=== PATIENT | male | born 1970 | race Caucasian/White ===

== ENCOUNTER 2018-10-06 14:11 | Emergency (ER) | payer SELFPAY ==
[2018-10-06 14:14] VITALS: BP 136/73; PULSE 79; RESP 16; TEMP 36.8; O2SAT 97
--- NOTE | 2018-10-06 14:35 | W.ED.GENAD ---
Discharge Plan Disposition Patient Disposition: HOME Condition: Improving Discharge Details Chief Complaint: Orthopedic Clinical Impression: Closed fracture of distal end of right tibia Primary Care Provider: None,None ED Provider: Anthony England Home Meds and New Rx's Prescriptions: No Action No Known Home Meds RF: 0 Discharge Instructions Instructions: Ankle Fracture (ED) Additional Instructions: Nonweightbearing with use of crutches until seen by Dr. Bacon in orthopedic clinic. Please call the clinic on Monday morning at [phone] for an appointment time. Elevate above the level of heart to reduce pain and swelling. Leave splint in place. May use Tylenol and/or ibuprofen as needed for pain. Return if developed cold, blue, tingling of the toes or any other acute concerns Medical Decision Making 48-year-old male with slip and fall down a small number of stairs at home, twisting his right ankle without other injury. He has normal vital signs, no neurovascular compromise. Given ice topically & referred for x-ray to rule out underlying fracture. X-ray reveals a minimally displaced vertical fracture through the distal tibia into the mortise on the lateral aspect. Screening knee x-ray obtained to rule out Maisonneuve fracture (negative). Patient placed in posterior splint with stirrup and made nonweightbearing with crutches. He will follow-up with Dr. Bacon in clinic with whom the case was discussed and x-ray reviewed. Patient improved and appropriate for discharge to home. He understands follow-up and return precautions. HPI General Mode of arrival: wheelchair. Date/Time Provider Initiated Documentation: 10/06/18 14:24. Limitations to Documentation: no limitations. Information obtained by: patient and family. History of Present Illness 48 year old M presents to the emergency department with the chief complaint of Patient slipped down stairs at home with twisting his right ankle. , described as moderate, Quality is described as aching and dull, and is localized to the right and lower extremity. Patient reports no radiation. Patient started experiencing this minute(s) and it has been constant. No relieving factors improve symptom(s), Movement worsens symptoms . Patient notes no other symptoms.; denies chest pain, headaches, syncope and weakness. Patient did receive the following treatments prior to arrival, other (ice) Related Data Home Medications Medication Instructions Recorded Confirmed Unknown [No Known Home Meds] 10/06/18 10/06/18 Allergies Allergy/AdvReac Type Severity Reaction Status Date / Time No Known Allergies Allergy Unverified 10/06/18 14:14 General Stated Complaint: Orthopedic EUNICE: 4 Review of Systems Review of Systems No numbness or tingling. No head/neck/chest/belly discomfort. 8 systems reviewed and otherwise neg PFSH Social History Smoking/Tobacco Use Status: Never Alcohol Intake: current Alcohol Intake frequency: a few times a month Do you feel safe at home: Yes Do you feel safe in your relationship?: Yes Exam Narrative Exam Narrative: GEN: awake, alert, oriented 3. Pleasant, well groomed, interactive. HEAD: Normocephalic, atraumatic ENT: Mucous membranes moist, oropharynx unremarkable, External ear exam unremarkable EYES: PERRL, EOMI NECK: Full ROM, no DEANGELO, no menigismus. Nontender CHEST/RESP: Nontender, no respiratory distress ABDOMEN: Soft, nontender, no mass. EXT: Full ROM, right lateral malleoli are swelling and tenderness, minimal medial malleoli tenderness. No tenderness of the knee Neuro: Grossly normal neurologic exam, conversant, interactive. Psych: Speech fluent, thoughts congruent, affect normal Course Vital Signs Temperature 36.8 C 10/06/18 14:14 Pulse 79 10/06/18 14:14 Respiratory Rate 16 10/06/18 14:14 Blood Pressure 136/73 10/06/18 14:14 Pulse Oximetry 97 10/06/18 14:14 Temperature 36.8 C 10/06/18 14:14 Temperature Source Temporal Artery Scan 10/06/18 14:14 Pulse 79 10/06/18 14:14 Respiratory Rate 16 10/06/18 14:14 Respiratory Effort 10/06/18 14:14 Blood Pressure 136/73 10/06/18 14:14 Blood Pressure Position Sitting 10/06/18 14:14 Pulse Oximetry 97 10/06/18 14:14 Oxygen Delivery Method Room Air 10/06/18 14:14 Oxygen Flow Rate 0 10/06/18 14:14 Pain Level 3 10/06/18 14:14 Procedures Orthopedic Splinting/Casting Injury #1: Side: right Lower Extremity Injury Location: ankle Lower Extremity Immobilizer: posterior splint and stirrup splint Other Orthopedic Equipment: crutches
--- NOTE | 2018-10-06 14:38 | ED.GENADUL_ITS ---
Discharge Plan Disposition Patient Disposition: HOME Condition: Improving Discharge Details Chief Complaint: Orthopedic Clinical Impression: Closed fracture of distal end of right tibia Primary Care Provider: None,None ED Provider: Anthony England Home Meds and New Rx's Prescriptions: No Action No Known Home Meds RF: 0 Discharge Instructions Instructions: Ankle Fracture (ED) Additional Instructions: Nonweightbearing with use of crutches until seen by Dr. Bacon in orthopedic clinic. Please call the clinic on Monday morning at [phone] for an appointment time. Elevate above the level of heart to reduce pain and swelling. Leave splint in place. May use Tylenol and/or ibuprofen as needed for pain. Return if developed cold, blue, tingling of the toes or any other acute concerns Medical Decision Making 48-year-old male with slip and fall down a small number of stairs at home, twisting his right ankle without other injury. He has normal vital signs, no neurovascular compromise. Given ice topically & referred for x-ray to rule out underlying fracture. X-ray reveals a minimally displaced vertical fracture through the distal tibia into the mortise on the lateral aspect. Screening knee x-ray obtained to rule out Maisonneuve fracture (negative). Patient placed in posterior splint with stirrup and made nonweightbearing with crutches. He will follow-up with Dr. Bacon in clinic with whom the case was discussed and x-ray reviewed. Patient improved and appropriate for discharge to home. He understands follow-up and return precautions. HPI General Mode of arrival: wheelchair . Date/Time Provider Initiated Documentation: 10/06/18 14:24 . Limitations to Documentation: no limitations . Information obtained by: patient and family . History of Present Illness 48 year old M presents to the emergency department with the chief complaint of Patient slipped down stairs at home with twisting his right ankle. , described as moderate, Quality is described as aching and dull, and is localized to the right and lower extremity. Patient reports no radiation. Patient started experiencing this minute(s) and it has been constant. No relieving factors improve symptom(s), Movement worsens symptoms . Patient notes no other symptoms.; denies chest pain, headaches, syncope and weakness. Patient did receive the following treatments prior to arrival, other (ice) Related Data Home Medications Medication Instructions Recorded Confirmed Unknown [No Known Home Meds] 10/06/18 10/06/18 Allergies Allergy/AdvReac Type Severity Reaction Status Date / Time No Known Allergies Allergy Unverified 10/06/18 14:14 General Stated Complaint: Orthopedic EUNICE: 4 Review of Systems Review of Systems No numbness or tingling. No head/neck/chest/belly discomfort. 8 systems reviewed and otherwise neg PFSH Social History Smoking/Tobacco Use Status: Never Alcohol Intake: current Alcohol Intake frequency: a few times a month Do you feel safe at home: Yes Do you feel safe in your relationship?: Yes Exam Narrative Exam Narrative: GEN: awake, alert, oriented 3. Pleasant, well groomed, interactive. HEAD: Normocephalic, atraumatic ENT: Mucous membranes moist, oropharynx unremarkable, External ear exam unremarkable EYES: PERRL, EOMI NECK: Full ROM, no DEANGELO, no menigismus. Nontender CHEST/RESP: Nontender, no respiratory distress ABDOMEN: Soft, nontender, no mass. EXT: Full ROM, right lateral malleoli are swelling and tenderness, minimal medial malleoli tenderness. No tenderness of the knee Neuro: Grossly normal neurologic exam, conversant, interactive. Psych: Speech fluent, thoughts congruent, affect normal Course Vital Signs Temperature 36.8 C 10/06/18 14:14 Pulse 79 10/06/18 14:14 Respiratory Rate 16 10/06/18 14:14 Blood Pressure 136/73 10/06/18 14:14 Pulse Oximetry 97 10/06/18 14:14 Temperature 36.8 C 10/06/18 14:14 Temperature Source Temporal Artery Scan 10/06/18 14:14 Pulse 79 10/06/18 14:14 Respiratory Rate 16 10/06/18 14:14 Respiratory Effort 10/06/18 14:14 Blood Pressure 136/73 10/06/18 14:14 Blood Pressure Position Sitting 10/06/18 14:14 Pulse Oximetry 97 10/06/18 14:14 Oxygen Delivery Method Room Air 10/06/18 14:14 Oxygen Flow Rate 0 10/06/18 14:14 Pain Level 3 10/06/18 14:14 Procedures Orthopedic Splinting/Casting Injury #1: Side: right Lower Extremity Injury Location: ankle Lower Extremity Immobilizer: posterior splint and stirrup splint Other Orthopedic Equipment: crutches
--- NOTE | 2018-10-06 15:00 | DI.RAD_ITS ---
SYMPTOM/DIAGNOSIS: PAIN, SWELLING, DISTAL PAIN AFTER FALL RIGHT ANKLE: Three views. There is a vertically oriented fracture involving the lateral aspect of the distal tibia. The fracture extends distally to the tibial plafond. No other fracture or dislocation is seen. There is soft tissue swelling about the ankle, particularly laterally. IMPRESSION: Nondisplaced, vertically oriented intra-articular fracture involving the lateral aspect of the distal right tibia. RIGHT KNEE: No acute fracture or dislocation is seen. Mild degenerative changes are present. IMPRESSION: No acute abnormality.
--- NOTE | 2018-10-06 15:26 | DI.VRAD_ITS ---
EXAM: XR Right Ankle Complete, 3 or more Views EXAM DATE/TIME: 10/06/2018 2:35 PM CLINICAL HISTORY: 48 years old, male; Pain; Ankle; Right; Patient HX: Fell on stairs today, pain right ankle TECHNIQUE: XR Right ankle 3 or more views. COMPARISON: No relevant prior studies available. FINDINGS: Bones/joints: Minimally displaced Vertical fracture through the distal tibia and tibial plafond. Soft tissues: Bimalleolar soft tissue swelling. IMPRESSION: 1. minimally displaced Vertical fracture through the distal tibia and tibial plafond. 2. Bimalleolar soft tissue swelling. Dictated and Authenticated by: Luis E Mary MD. Ordering:DONNA Cruz MD
--- NOTE | 2018-10-06 16:01 | DI.VRAD_ITS ---
EXAM: XR Right Knee, 3 Views EXAM DATE/TIME: 10/06/2018 3:16 PM CLINICAL HISTORY: 48 years old, male; Pain; Knee; Right; Patient HX: PT fell today, right knee pain TECHNIQUE: XR Right knee 3 views. COMPARISON: No relevant prior studies available. FINDINGS: Bones/joints: Minimal osteophyte formation in the superior pole the patella There is no evidence of acute fracture. There is no evidence of malalignment or dislocation. Soft tissues: Normal. IMPRESSION: 1. There is no evidence of acute fracture. 2. There is no evidence of malalignment or dislocation. Dictated and Authenticated by: Luis E Mary MD. Ordering:DONNA Cruz MD
[2018-10-06 16:23] VITALS: BP 136/73; PULSE 79; RESP 16; TEMP 36.8; O2SAT 97
== END 2018-10-06 16:26 | disposition home or self-care (01) ==
LOC: ER 15:56
PROVIDERS: Emergency Provider Emergency Medicine
DX: S82.391A Other fracture of lower end of right tibia, initial encounter for closed fracture (principal); W10.8XXA Fall (on) (from) other stairs and steps, initial encounter
CPT/HCPCS: 29505; 73562; 99283; 73610; 99282; E0114

== ENCOUNTER 2018-10-17 09:05 | Outpatient (CLI) | payer SELFPAY ==
--- NOTE | 2018-10-17 09:00 | DI.RAD_ITS ---
SYMPTOMS/DIAGNOSIS: RT ANKLE FX RIGHT ANKLE: Comparison is made with [id number]. There has been no change in alignment of the intra-articular fracture of the distal tibia. Soft tissue swelling remains present. No new abnormalities are seen.
== END 2018-10-17 09:25 ==
PROVIDERS: Visit Provider Physician Assistant
DX: S82.891A Other fracture of right lower leg, initial encounter for closed fracture (principal)
CPT/HCPCS: 73610

== ENCOUNTER 2018-10-31 09:18 | Outpatient (CLI) | payer SELFPAY ==
--- NOTE | 2018-10-31 09:16 | DI.RAD_ITS ---
SYMPTOMS/DIAGNOSIS: EVAL RT DISTAL TIB FX RIGHT ANKLE: Three views. Comparison 10/17/18. There has been no change in alignment of the fracture involving the distal right tibia. No definite bridging callous formation is seen at this time. No new fractures or dislocations are present. There is persistent mild soft tissue swelling about the ankle noted.
== END 2018-10-31 09:38 ==
PROVIDERS: Visit Provider Student in an Organized Health Care Education/Training Program
DX: S82.391D Other fracture of lower end of right tibia, subsequent encounter for closed fracture with routine healing (principal)
CPT/HCPCS: 73610